=== PATIENT | male | born 1980 | race Caucasian/White ===

== ENCOUNTER 2019-11-09 18:10 | Inpatient (IN) | payer OTHER ==
[2019-11-09 19:06] VITALS: BMI 27.6
--- NOTE | 2019-11-09 21:08 | HP ---
"COWS - Scale Resting Pulse: 0= [place] 80 or Below Sweatin=Flushed/Facial Moisture Restless Observation: 0= Sits Still Pupil Size: 0= Normal to Room Light Bone or Joint Aches: 1= Mild Discomfort Runny Nose/ Eye Tearin= None GI Upset > 30mins: 0= None Tremor Observation: 0= None Yawning Observation: 2= >3x During Session Anxiety or Irritability: 2=Irritable/Anxious Goose Flesh Skin: 3=Piloerection COWS Score: 10 CIWA Score - Admission Criteria [facility]ASAS Guidelines: Admission for Medically Managed Detox: Requires at least one of the followin. CIWA greater than 12 2. Seizures within the past 24 hours 3. Delirium tremens within the past 24 hours 4. Hallucinations within the past 24 hours 5. Acute intervention needed for co occurring medical disorder 6. Acute intervention needed for co occurring psychiatric disorder 7. Severe withdrawal that cannot be handled at a lower level of care (continued vomiting, continued diarrhea, abnormal vital signs) requiring intravenous medication and/or fluids 8. Admission [facility] Chief Complaint: here for heroin detox Allergies/Adverse Reactions: Allergies Allergy/AdvReac Type Severity Reaction Status Date / Time No Known Allergies Allergy Verified 11/09/19 18:45 History of Present Illness: seeking heroin detox. referred by david valdez after seeking residential admission. client reports daily use of heroin, apporx 4 bags daily. ivdu. last use 1 day ago. presents with c/o withdrawal sx's. he reports this is his first attempt at detox. most recent clean time 10 months relapsing 2 months ago. he also abuses cocaine, cannabis. he is rx klonopin for anxiety. d/w client rx will not be continued but will detox with valium and may resume after dc. client agrees to plan and will be referred to psych., denies hx/o drug overdose / seizures/ blackouts. homeless, unemployed, denies legals Data Detail Level: Printer-Friendly View Extended View Confidential Drug Utilization Report Search Terms: sonya waldrop, 1980Search Date: 11/09/2019 09:04:08 PM The Drug Utilization Report below displays all of the controlled substance prescriptions, if any, that your patient has filled in the last twelve months. The information displayed on this report is compiled from pharmacy submissions to the Department, and accurately reflects the information as submitted by the pharmacies. This report was requested by: Amna Goodwin | Reference #: [id number] You have not added a NICK number. Keeping your NICK number(s) up to date on the My NICK Numbers page will enable the separation of your prescriptions from others ' in the search results. Others' Prescriptions Patient Name: Sonya Waldrop Date: 1980 Address: [address] [place] [address] [place] [address] Sex: Male Rx Written Rx Dispensed Drug Quantity Days Supply Prescriber Name 10/22/2019 10/22/2019 clonazepam 1 mg tablet 30 30 Ines Gotti MD 07/23/2019 07/25/2019 dextroamp-amphetamin 30 mg tab 30 30 Herrera Bocanegra MD 07/23/2019 07/25/2019 clonazepam 1 mg tablet 120 30 Herrera Bocanegra MD Exam Limitations: No Limitations - Ebola screening Have you traveled outside of the country in the last 21 days: No (N) Have you had contact with anyone from an Ebola affected area: No Do you have a fever: No - Review of Systems Constitutional: Chills, Malaise, Night Sweats EENT: reports: Blurred Vision (glasses), Nose Congestion, Dental Problems ( dental pain) Respiratory: reports: No Symptoms reported Cardiac: reports: No Symptoms Reported GI: reports: Diarrhea, Abdominal cramping : reports: No Symptoms Reported Musculoskeletal: reports: No Symptoms Reported Integumentary: reports: Flushing, Sweating Neuro: reports: Headache (r/t tmj) Endocrine: reports: No Symptoms Reported Hematology: reports: No Symptoms Reported Psychiatric: reports: Orientated x3, Agitated (irritable), Anxious, Depressed ( denies si) Other Systems: Reviewed and Negative Patient History - Patient Medical History Hx Anemia: No Hx Asthma: Yes Hx Chronic Obstructive Pulmonary Disease (COPD): No Hx Cancer: No Hx Cardiac Disorders: No Hx Congestive Heart Failure: No Hx Hypertension: No Hx Hypercholesterolemia: No Hx Pacemaker: No HX Cerebrovascular Accident: No Hx Seizures: No Hx Dementia: No Hx Diabetes: No Hx Gastrointestinal Disorders: No Hx Liver Disease: No Hx Genitourinary Disorders: No Hx Sexually Transmitted Disorders: No Hx Renal Disease (ESRD): No Hx Thyroid Disease: No Hx Human Immunodeficiency Virus (HIV): No Hx Hepatitis C: No Hx Depression: Yes Hx Suicide Attempt: No Hx Bipolar Disorder: No Hx Schizophrenia: No Other Medical History: anxiety - Patient Surgical History Past Surgical History: No - PPD History Previous Implant?: Yes Documented Results: Negative w/o proof Implanted On Prior [facility] Admission?: No PPD to be Administered?: Yes - Smoking Cessation Smoking history: Current every day smoker Have you smoked in the past 12 months: Yes Aproximately how many cigarettes per day: 20 Cigars Per Day: 0 Hx Chewing Tobacco Use: No Initiated information on smoking cessation: Yes 'Breaking Loose' booklet given: 11/09/19 - Substance & Tx. History Hx Alcohol Use: Yes Hx Substance Use: Yes Substance Use Type: Cocaine, Heroin, Marijuana Hx Substance Use Treatment: No - Substances abused Heroin Substance route: Injection Frequency: Daily Amount used: 4 BAGS Age of first use: 20 Date of last use: 11/08/19 Cocaine Substance route: Inhalation Frequency: 1-2 times per week Amount used: $20 Age of first use: 18 Date of last use: 11/08/19 Marijuana/Hashish Substance route: Smoking Frequency: Daily Amount used: $40/WEEK Age of first use: 15 Date of last use: 11/02/19 Admission Physical Exam S - Vital Signs Vital Signs: Vital Signs - 24 hr 11/09/19 11/09/19 18:47 19:41 Temperature 97 F L 97 F L Pulse Rate 69 69 Respiratory 18 18 Rate Blood Pressure 106/65 106/65 - Physical General Appearance: Yes: Moderate Distress, Sweating, Anxious HEENTM: Yes: EOMI, Normocephalic, Normal Voice, SHAY, Pharynx Normal, Nasal Congestion Respiratory: Yes: Chest Non-Tender, Lungs Clear, Normal Breath Sounds, No Respiratory Distress, No Accessory Muscle Use Neck: Yes: No masses,lesions,Nodules, Supple, Trachea in good position Breast: Yes: Breasts Symetrical Cardiology: Yes: Regular Rhythm, Regular Rate, S1, S2 Abdominal: Yes: Normal Bowel Sounds, Non Tender, Soft Genitourinary: Yes: Within Normal Limits Back: Yes: Normal Inspection Musculoskeletal: Yes: full range of Motion, Gait Steady Extremities: Yes: Normal Capillary Refill, Normal Range of Motion, Non-Tender Neurological: Yes: Fully Oriented, Alert, Motor Strength 5/5, Depressed Affect ( denies si) Integumentary: Yes: Cold, Clammy Lymphatic: Yes: Within Normal Limits - Diagnostic (1) Opioid dependence with withdrawal Current Visit: Yes Status: Acute (2) Cannabis dependence, uncomplicated Current Visit: Yes Status: Acute (3) Cocaine dependence, uncomplicated Current Visit: Yes Status: Acute (4) Nicotine dependence Current Visit: Yes Status: Acute Qualifiers: Nicotine product type: cigarettes Substance use status: uncomplicated Qualified Code(s): F17.210 - Nicotine dependence, cigarettes, uncomplicated (5) Homeless Current Visit: Yes Status: Suspected Comment: reported (6) IVDU (intravenous drug user) Current Visit: Yes Status: Acute (7) Depressed affect Current Visit: Yes Status: Acute (8) Psychiatric disorder Current Visit: Yes Status: Chronic Comment: bipolar, anxiety (9) Asthma Current Visit: Yes Status: Chronic Qualifiers: Asthma severity: mild Asthma persistence: intermittent Asthma complication type: uncomplicated Qualified Code(s): J45.20 - Mild intermittent asthma, uncomplicated Cleared for Admission S - Detox or Rehab [facility] Level of Care: Medically Managed Detox Regimen/Protocol: Methadone/Valium Claeared for Rehab Admission: No Breathalyzer - Breathalyzer Breathalyzer: 0 Urine Drug Screen - Test Device Lot number: [id number] Expiration date: 06/16/21 - Control Is test valid?: Yes - Results Drug screen NEGATIVE: No Urine drug screen results: THC-Marijuana, SYLVIA-Cocaine, MOP-Opiates Inpatient Rehab Admission - Rehab Decision to Admit Inpatient rehab admission?: No"
[2019-11-09] MEDS ORDERED: ONDANSETRON *ODT* 4 MG TABLET SL PRN (21:19)
[2019-11-09] MEDS ORDERED: METHADONE HCL 10 MG TABLET (FOR DETOX USE ONLY) PO ONE (21:19)
[2019-11-09] MEDS ORDERED: MAGNESIUM CITRATE 300 ML BOTTLE PO PRN (21:19)
[2019-11-09] MEDS ORDERED: IBUPROFEN 400 MG TABLET (FP) PO PRN (21:19)
[2019-11-09] MEDS ORDERED: DICYCLOMINE HCL 10 MG CAPSULE PO PRN (21:19)
[2019-11-09] MEDS ORDERED: BISMUTH SUBSALICYLATE 524 MG/30 ML UD PO PRN (21:19)
[2019-11-09] MEDS ORDERED: cloNIDine HCL 0.1 MG TABLET PO PRN (21:19)
[2019-11-09] MEDS ORDERED: guaiFENesin 200 MG/10 ML 10 ML UNIT-DOSE CUPS PO PRN (21:19)
[2019-11-09] MEDS ORDERED: MAG HYDROX/AL HYDROX/SIMETH 30 ML UNIT-DOSE CUP PO PRN (21:19)
[2019-11-09] MEDS ORDERED: MAGNESIUM HYDROX 2400MG/30ML ORAL SUSPENSION 30 ML CUP PO PRN (21:19)
[2019-11-09] MEDS ORDERED: ACETAMINOPHEN 325 MG TABLET (FP) PO PRN (21:19)
[2019-11-09] MEDS ORDERED: P-EPHED 60MG/TRIPROLIDI 2.5MG TABLET PO PRN (21:19)
[2019-11-09] MEDS ORDERED: MENTHOL/PHENOL 1 EACH UD MM PRN (21:19)
[2019-11-09] MEDS ORDERED: NALOXONE HCL 0.4 MG/ML VIAL IM PRN (21:19)
[2019-11-09] MEDS ORDERED: ALBUTEROL SO4 8 GM HFA INHALER IH PRN (21:30)
[2019-11-09] MEDS: METHOCARBAMOL 500 MG TABLET PO PRN (22:45)
[2019-11-09] MEDS: MELATONIN 5 MG TABLETS PO PRN (22:45)
[2019-11-09] MEDS: THIAMINE HCL 100 MG TABLET (FP) PO SCH (22:45)
[2019-11-09] MEDS: diazePAM 5 MG TABLET PO SCH (22:45)
[2019-11-10] MEDS: NICOTINE POLACRILEX 2 MG GUM BUC PRN ×2 (01:14→22:45)
[2019-11-10] MEDS: hydrOXYzine PAMOATE 25 MG CAPSULE (FP) PO PRN (03:05)
[2019-11-10] MEDS: ACETAMINOPHEN 325 MG TABLET (FP) PO PRN ×3 (03:05→23:16)
[2019-11-10] MEDS: diazePAM 5 MG TABLET PO SCH ×3 (05:48→22:43)
[2019-11-10] MEDS ORDERED: METHADONE HCL 10 MG TABLET (FOR DETOX USE ONLY) ONE (08:18)
[2019-11-10] MEDS ORDERED: METHADONE HCL 5 MG TABLET (FOR DETOX USE ONLY) ONE (08:18)
--- NOTE | 2019-11-10 09:45 | PN ---
BHS COWS - Scale Resting Pulse: 1= [place] 81-100 Sweatin= Chills/Flushing Restless Observation: 0= Sits Still Pupil Size: 1= Pupils >than Normal Bone or Joint Aches: 2= Severe Diffuse Aches Runny Nose/ Eye Tearin= None GI Upset > 30mins: 0= None Tremor Observation of Outstretched Hands: 0= None Yawning Observation: 0= None Anxiety or Irritability: 1=Feels Anxious/Irritable Goose Flesh Skin: 3=Piloerection COWS Score: 9 BHS Progress Note (SOAP) Subjective: 38 years old male admitted on 11/09/19 for opiate withdrawal sx management treating with valium and methadone detox regimens ate breakfast feeling tired resting on bed prefers to stay in bed today Objective: 11/10/19 09:48 Vital Signs Temperature 97.5 F L 11/10/19 09:20 Pulse Rate 86 11/10/19 09:20 Respiratory Rate 18 11/10/19 09:20 Blood Pressure 94/63 11/10/19 09:20 O2 Sat by Pulse Oximetry (%) 11/10/19 09:48 lab pending Assessment: 11/10/19 09:48 opiate withdrawal Plan: valium and methadone regimens
[2019-11-10] MEDS ORDERED: METHADONE (DETOX) 20 MG, METHADONE (DETOX) 5 MG PO ONE (10:00)
[2019-11-10] MEDS: NICOTINE 21 MG/24 HOURS TOPICAL PATCH TD SCH (10:29)
[2019-11-10] MEDS: diazePAM 5 MG TABLET PO PRN (10:29)
[2019-11-10] MEDS: PRENATAL VITAMINS W/ FOLIC ACID TABLET (FP) PO SCH (10:29)
[2019-11-10 11:04] LABS: ALBUMIN 3.6 g/dl (3.4-5.0); BILIRUBIN,TOTAL 0.3 mg/dL (0.2-1); BLOOD UREA NITROGEN 11.8 mg/dL (7-18); CALCIUM 8.9 mg/dL (8.5-10.1); CREATININE 0.9 mg/dL (0.55-1.3); HEMATOCRIT 38.3 % (35.4-49); HEMOGLOBIN 12.8 GM/dL (11.7-16.9); MCH 31.1 pg (25.7-33.7); MCHC 33.3 g/dl (32.0-35.9); MEAN CELL VOLUME 93.1 fl (80-96); MEAN PLT VOLUME 10.3 fl (7.5-11.1); PLATELET COUNT 193 K/MM3 (134-434); POTASSIUM 3.7 mmol/L (3.5-5.1); RBC 4.12 M/mm3 (4.00-5.60); RDW 12.7 % (11.9-15.9); TOT PROT 5.8 g/dl (6.4-8.2); WHITE BLOOD COUNT 6.8 K/mm3 (4.0-10.0)
--- NOTE | 2019-11-10 13:35 | CONSULT ---
[facility] Psychiatric Consult - Data Date of interview: 11/10/19 Admission source: [employer] Identifying data: Mr Waldrop is a 38 years old single male, unemployed receiving public assistance, homeless seeking detox treatment for opioid, cocaine and cannabis Substance Abuse History: Reports history of heroin, cocaine and marijuana use. Refer to addiction counselor's summary for further information Medical History: Significant for bronchial asthme and appendectomy at age 13. Smokes cigarettes 1 ppd Psychiatric History: Reports that his first mental health contact was at age 7 in the context of his parents . Claims that he saw a psychologist for many years. At age 27, he was diagnosed with anxiety disorder and prescribed Xanax. On June 2018, he reports that he was diagnosed with paranoid personality disorder and prescribed Haldol. Reports that he currently sees a psychiatrist at [facility] and he is prescribed Haldol 2 mg/hs, Paxil 40 mg/day and Klonopin 1 mg/day. Reports two previous psychiatric hospitalizations at [facility] in [place] and most recently in 2010 at [facility] for auditory hallucinations and paranoid ideations. Denies previous suicidal attempt. At present, denies experiencing psychotic, manic or depressive symptoms, S/H ideations. However, reports feeling irritable and sleeping poorly Physical/Sexual Abuse/Trauma History: Denies history of abuse as a child or DV relationship as an adult Mental Status Exam - Mental Status Exam Alert and Oriented to: Time, Place, Person Cognitive Function: Fair Patient Appearance: Well Groomed Mood: Irritable Speech Pattern: Clear Voice Loudness: Normal Thought Process: Intact, Goal Oriented Thought Disorder: Not Present Hallucinations: Denies Suicidal Ideation: Denies Homicidal Ideation: Denies Insight/Judgement: Poor Sleep: Poorly Appetite: Good Muscle strength/Tone: Normal Gait/Station: Normal Psychiatric Findings - Problem List ([place] 1, 2,3) (1) Psychotic disorder Current Visit: Yes Status: Chronic (2) Schizophrenia Current Visit: Yes Status: Ruled-out (3) Substance induced mood disorder Current Visit: Yes Status: Acute (4) Substance-induced sleep disorder Current Visit: Yes Status: Acute (5) Opioid dependence with withdrawal Current Visit: Yes Status: Acute (6) Cocaine dependence, uncomplicated Current Visit: Yes Status: Acute (7) Cannabis dependence, uncomplicated Current Visit: Yes Status: Acute (8) Nicotine dependence Current Visit: Yes Status: Chronic Qualifiers: Nicotine product type: cigarettes Substance use status: uncomplicated Qualified Code(s): F17.210 - Nicotine dependence, cigarettes, uncomplicated (9) Asthma Current Visit: Yes Status: Chronic Qualifiers: Asthma severity: mild Asthma persistence: intermittent Asthma complication type: uncomplicated Qualified Code(s): J45.20 - Mild intermittent asthma, uncomplicated - Initial Treatment Plan Initial Treatment Plan: 1) Continue Paxil 40 mg po daily and Haldol 2 mg po HS. 2) Continue inpatient detoxification
[2019-11-10] MEDS: PARoxetine HCL 20 MG TABLET PO SCH (14:13)
[2019-11-10] MEDS: THIAMINE HCL 100 MG TABLET (FP) PO SCH (22:43)
[2019-11-10] MEDS: HALOPERIDOL 2 MG TABLET PO SCH (22:43)
[2019-11-11] MEDS: hydrOXYzine PAMOATE 25 MG CAPSULE (FP) PO PRN ×3 (01:22→18:30)
[2019-11-11] MEDS: diazePAM 5 MG TABLET PO SCH ×2 (05:14→17:29)
[2019-11-11] MEDS ORDERED: METHADONE HCL 10 MG TABLET (FOR DETOX USE ONLY) PO ONE (10:00)
--- NOTE | 2019-11-11 10:31 | EKG ---
Test Reason : Blood Pressure : / mmHG Vent. Rate : 061 BPM Atrial Rate : 061 BPM P-R Int : 188 ms QRS Dur : 104 ms QT Int : 402 ms P-R-T Axes : 039 074 050 degrees QTc Int : 404 ms POOR DATA QUALITY, INTERPRETATION MAY BE ADVERSELY AFFECTED NORMAL SINUS RHYTHM NORMAL ECG NO PREVIOUS ECGS AVAILABLE Confirmed by WENCESLAO JUDD, MAGALI ([id number]) on 11/11/2019 10:31:01 AM Referred By: Butch Smith Confirmed By:MAGALI BILLY MD
--- NOTE | 2019-11-11 10:56 | PN ---
BHS COWS - Scale Resting Pulse: 1= [place] 81-100 Sweatin= Chills/Flushing Restless Observation: 0= Sits Still Pupil Size: 1= Pupils >than Normal Bone or Joint Aches: 1= Mild Discomfort Runny Nose/ Eye Tearin= None GI Upset > 30mins: 1= Stomach Cramp Tremor Observation of Outstretched Hands: 0= None Yawning Observation: 2= >3x During Session Anxiety or Irritability: 1=Feels Anxious/Irritable Goose Flesh Skin: 0=Smooth Skin COWS Score: 8 S Progress Note (SOAP) Subjective: 38 years old male admitted on 11/09/19 for opiate withdrawal sx management treating with valium and methadone detox regimens feeling ok today encourage to attend groups and meetings discuss medication assisted treatment program and roll picker narcan from pharmacy Objective: 11/11/19 10:55 Vital Signs Temperature 98.2 F 11/11/19 09:27 Pulse Rate 86 11/11/19 09:27 Respiratory Rate 18 11/11/19 09:27 Blood Pressure 116/79 11/11/19 09:27 O2 Sat by Pulse Oximetry (%) Laboratory Last Values WBC 6.8 K/mm3 (4.0-10.0) 11/10/19 07:50 RBC 4.12 M/mm3 (4.00-5.60) 11/10/19 07:50 Hgb 12.8 GM/dL (11.7-16.9) 11/10/19 07:50 Hct 38.3 % (35.4-49) 11/10/19 07:50 MCV 93.1 fl (80-96) 11/10/19 07:50 MCH 31.1 pg (25.7-33.7) 11/10/19 07:50 MCHC 33.3 g/dl (32.0-35.9) 11/10/19 07:50 RDW 12.7 % (11.9-15.9) 11/10/19 07:50 Plt Count 193 K/MM3 (134-434) 11/10/19 07:50 MPV 10.3 fl (7.5-11.1) 11/10/19 07:50 Sodium 142 mmol/L (136-145) 11/10/19 07:50 Potassium 3.7 mmol/L (3.5-5.1) 11/10/19 07:50 Chloride 108 mmol/L (98-107) H 11/10/19 07:50 Carbon Dioxide 30 mmol/L (21-32) 11/10/19 07:50 Anion Gap 5 MMOL/L (8-16) L 11/10/19 07:50 BUN 11.8 mg/dL (7-18) 11/10/19 07:50 Creatinine 0.9 mg/dL (0.55-1.3) 11/10/19 07:50 Est GFR (CKD-EPI)AfAm 126.90 11/10/19 07:50 Est GFR (CKD-EPI)NonAf 109.49 11/10/19 07:50 Random Glucose 122 mg/dL (74-106) H 11/10/19 07:50 Calcium 8.9 mg/dL (8.5-10.1) 11/10/19 07:50 Total Bilirubin 0.3 mg/dL (0.2-1) 11/10/19 07:50 AST 9 U/L (15-37) L 11/10/19 07:50 ALT 21 U/L (13-61) 11/10/19 07:50 Alkaline Phosphatase 50 U/L (45-117) 11/10/19 07:50 Total Protein 5.8 g/dl (6.4-8.2) L 11/10/19 07:50 Albumin 3.6 g/dl (3.4-5.0) 11/10/19 07:50 RPR Titer Nonreactive (NONREACTIVE) 11/10/19 07:50 lab noted Assessment: 11/11/19 10:56 opiate withdrawal Plan: valium and methadone regimens
[2019-11-11] MEDS: PRENATAL VITAMINS W/ FOLIC ACID TABLET (FP) PO SCH (11:02)
[2019-11-11] MEDS: PARoxetine HCL 20 MG TABLET PO SCH (11:02)
[2019-11-11] MEDS: NICOTINE 21 MG/24 HOURS TOPICAL PATCH TD SCH (11:02)
[2019-11-11] MEDS: NICOTINE POLACRILEX 2 MG GUM BUC PRN ×2 (11:59→18:56)
--- NOTE | 2019-11-11 19:42 | PN ---
BHS Progress Note Note: Patient w/ a PPD induration of 20 mm. Denies + PPD in past. Denies hx cough or night sweats. Plan: Chest x-ray in a.m.
[2019-11-11] MEDS: THIAMINE HCL 100 MG TABLET (FP) PO SCH (22:00)
[2019-11-11] MEDS: HALOPERIDOL 2 MG TABLET PO SCH (22:01)
[2019-11-11] MEDS: diazePAM 5 MG TABLET PO PRN (22:02)
[2019-11-11] MEDS: MELATONIN 5 MG TABLETS PO PRN (22:03)
[2019-11-12] MEDS: hydrOXYzine PAMOATE 25 MG CAPSULE (FP) PO PRN ×4 (00:36→20:09)
[2019-11-12] MEDS ORDERED: diazePAM 5 MG TABLET PO ONE (06:00)
[2019-11-12] MEDS ORDERED: METHADONE HCL 5 MG TABLET (FOR DETOX USE ONLY) ONE (08:14)
[2019-11-12] MEDS ORDERED: METHADONE HCL 10 MG TABLET (FOR DETOX USE ONLY) ONE (08:14)
[2019-11-12] MEDS ORDERED: METHADONE (DETOX) 10 MG, METHADONE (DETOX) 5 MG PO ONE (10:00)
[2019-11-12] MEDS: PARoxetine HCL 20 MG TABLET PO SCH (10:23)
[2019-11-12] MEDS: PRENATAL VITAMINS W/ FOLIC ACID TABLET (FP) PO SCH (10:23)
[2019-11-12] MEDS: NICOTINE 21 MG/24 HOURS TOPICAL PATCH TD SCH (10:23)
[2019-11-12] MEDS: diazePAM 5 MG TABLET PO PRN (10:23)
[2019-11-12] MEDS: METHOCARBAMOL 500 MG TABLET PO PRN ×2 (10:24→22:20)
--- NOTE | 2019-11-12 12:02 | PN ---
BHS COWS - Scale Resting Pulse: 1= [place] 81-100 Sweatin= Chills/Flushing Restless Observation: 1= Difficult to Sit Still Pupil Size: 0= Normal to Room Light Bone or Joint Aches: 1= Mild Discomfort Runny Nose/ Eye Tearin= None GI Upset > 30mins: 0= None Tremor Observation of Outstretched Hands: 0= None Yawning Observation: 1= 1-2x During Session Anxiety or Irritability: 2=Irritable/Anxious Goose Flesh Skin: 0=Smooth Skin COWS Score: 7 S Progress Note (SOAP) Subjective: c/o sweats, anxiety, and muscle aches. Objective: 11/12/19 12:03 Vital Signs 11/12/19 11/12/19 06:17 09:10 Temperature 98 F 97.4 F L Pulse Rate 63 84 Respiratory 18 16 Rate Blood Pressure 115/67 110/71 Laboratory Last Values WBC 6.8 K/mm3 (4.0-10.0) 11/10/19 07:50 RBC 4.12 M/mm3 (4.00-5.60) 11/10/19 07:50 Hgb 12.8 GM/dL (11.7-16.9) 11/10/19 07:50 Hct 38.3 % (35.4-49) 11/10/19 07:50 MCV 93.1 fl (80-96) 11/10/19 07:50 MCH 31.1 pg (25.7-33.7) 11/10/19 07:50 MCHC 33.3 g/dl (32.0-35.9) 11/10/19 07:50 RDW 12.7 % (11.9-15.9) 11/10/19 07:50 Plt Count 193 K/MM3 (134-434) 11/10/19 07:50 MPV 10.3 fl (7.5-11.1) 11/10/19 07:50 Sodium 142 mmol/L (136-145) 11/10/19 07:50 Potassium 3.7 mmol/L (3.5-5.1) 11/10/19 07:50 Chloride 108 mmol/L (98-107) H 11/10/19 07:50 Carbon Dioxide 30 mmol/L (21-32) 11/10/19 07:50 Anion Gap 5 MMOL/L (8-16) L 11/10/19 07:50 BUN 11.8 mg/dL (7-18) 11/10/19 07:50 Creatinine 0.9 mg/dL (0.55-1.3) 11/10/19 07:50 Est GFR (CKD-EPI)AfAm 126.90 11/10/19 07:50 Est GFR (CKD-EPI)NonAf 109.49 11/10/19 07:50 Random Glucose 122 mg/dL (74-106) H 11/10/19 07:50 Calcium 8.9 mg/dL (8.5-10.1) 11/10/19 07:50 Total Bilirubin 0.3 mg/dL (0.2-1) 11/10/19 07:50 AST 9 U/L (15-37) L 11/10/19 07:50 ALT 21 U/L (13-61) 11/10/19 07:50 Alkaline Phosphatase 50 U/L (45-117) 11/10/19 07:50 Total Protein 5.8 g/dl (6.4-8.2) L 11/10/19 07:50 Albumin 3.6 g/dl (3.4-5.0) 11/10/19 07:50 RPR Titer Nonreactive (NONREACTIVE) 11/10/19 07:50 Labs noted. Assessment: 11/12/19 12:03 AOX3, in no acute respiratory distress. Full ROM, ambulating in the unit. Withdrawal symptoms. Plan: continue detox.
[2019-11-12] MEDS: THIAMINE HCL 100 MG TABLET (FP) PO SCH (22:18)
[2019-11-12] MEDS: HALOPERIDOL 2 MG TABLET PO SCH (22:19)
[2019-11-13] MEDS: hydrOXYzine PAMOATE 25 MG CAPSULE (FP) PO PRN ×3 (05:21→21:32)
[2019-11-13] MEDS ORDERED: METHADONE HCL 10 MG TABLET (FOR DETOX USE ONLY) PO ONE (10:00)
[2019-11-13] MEDS: NICOTINE 21 MG/24 HOURS TOPICAL PATCH TD SCH (10:22)
[2019-11-13] MEDS: PARoxetine HCL 20 MG TABLET PO SCH (10:22)
[2019-11-13] MEDS: PRENATAL VITAMINS W/ FOLIC ACID TABLET (FP) PO SCH (10:23)
[2019-11-13] MEDS: ACETAMINOPHEN 325 MG TABLET (FP) PO PRN (10:25)
--- NOTE | 2019-11-13 11:07 | PN ---
BHS COWS - Scale Resting Pulse: 0= [place] 80 or Below Sweatin= No chills or Flushing Restless Observation: 0= Sits Still Pupil Size: 0= Normal to Room Light Bone or Joint Aches: 2= Severe Diffuse Aches Runny Nose/ Eye Tearin= None GI Upset > 30mins: 0= None Tremor Observation of Outstretched Hands: 0= None Yawning Observation: 0= None Anxiety or Irritability: 2=Irritable/Anxious Goose Flesh Skin: 0=Smooth Skin COWS Score: 4 BHS Progress Note (SOAP) Subjective: c/o mild withdrawal symptoms. Objective: 11/13/19 11:06 Vital Signs 11/13/19 11/13/19 11/13/19 03:30 06:44 09:19 Temperature 97.1 F L 98 F Pulse Rate 64 90 Respiratory 18 18 20 Rate Blood Pressure 103/66 118/72 Laboratory Last Values WBC 6.8 K/mm3 (4.0-10.0) 11/10/19 07:50 RBC 4.12 M/mm3 (4.00-5.60) 11/10/19 07:50 Hgb 12.8 GM/dL (11.7-16.9) 11/10/19 07:50 Hct 38.3 % (35.4-49) 11/10/19 07:50 MCV 93.1 fl (80-96) 11/10/19 07:50 MCH 31.1 pg (25.7-33.7) 11/10/19 07:50 MCHC 33.3 g/dl (32.0-35.9) 11/10/19 07:50 RDW 12.7 % (11.9-15.9) 11/10/19 07:50 Plt Count 193 K/MM3 (134-434) 11/10/19 07:50 MPV 10.3 fl (7.5-11.1) 11/10/19 07:50 Sodium 142 mmol/L (136-145) 11/10/19 07:50 Potassium 3.7 mmol/L (3.5-5.1) 11/10/19 07:50 Chloride 108 mmol/L (98-107) H 11/10/19 07:50 Carbon Dioxide 30 mmol/L (21-32) 11/10/19 07:50 Anion Gap 5 MMOL/L (8-16) L 11/10/19 07:50 BUN 11.8 mg/dL (7-18) 11/10/19 07:50 Creatinine 0.9 mg/dL (0.55-1.3) 11/10/19 07:50 Est GFR (CKD-EPI)AfAm 126.90 11/10/19 07:50 Est GFR (CKD-EPI)NonAf 109.49 11/10/19 07:50 Random Glucose 122 mg/dL (74-106) H 11/10/19 07:50 Calcium 8.9 mg/dL (8.5-10.1) 11/10/19 07:50 Total Bilirubin 0.3 mg/dL (0.2-1) 11/10/19 07:50 AST 9 U/L (15-37) L 11/10/19 07:50 ALT 21 U/L (13-61) 11/10/19 07:50 Alkaline Phosphatase 50 U/L (45-117) 11/10/19 07:50 Total Protein 5.8 g/dl (6.4-8.2) L 11/10/19 07:50 Albumin 3.6 g/dl (3.4-5.0) 11/10/19 07:50 RPR Titer Nonreactive (NONREACTIVE) 11/10/19 07:50 Labs noted. Assessment: 11/13/19 11:07 AOx3, in no acute respiratory distress. Full rom, ambulating in the unit. Mild Withdrawal symptoms. For d/c tomorrow. Plan: continue detox. D/C in AM.
[2019-11-13] MEDS: NICOTINE POLACRILEX 2 MG GUM BUC PRN ×2 (15:10→20:31)
[2019-11-13] MEDS: THIAMINE HCL 100 MG TABLET (FP) PO SCH (21:31)
[2019-11-13] MEDS: MELATONIN 5 MG TABLETS PO PRN (21:32)
[2019-11-13] MEDS: METHOCARBAMOL 500 MG TABLET PO PRN (21:33)
[2019-11-13] MEDS: HALOPERIDOL 2 MG TABLET PO SCH (21:33)
[2019-11-14] MEDS: hydrOXYzine PAMOATE 25 MG CAPSULE (FP) PO PRN (05:49)
[2019-11-14] MEDS ORDERED: METHADONE HCL 5 MG TABLET (FOR DETOX USE ONLY) PO ONE (06:00)
[2019-11-14] MEDS: NICOTINE 21 MG/24 HOURS TOPICAL PATCH TD SCH (09:20)
[2019-11-14] MEDS: PRENATAL VITAMINS W/ FOLIC ACID TABLET (FP) PO SCH (09:20)
[2019-11-14] MEDS: PARoxetine HCL 20 MG TABLET PO SCH (09:20)
--- NOTE | 2019-11-14 12:10 | DS ---
[facility] Detox Discharge Summary Admission Date: 11/09/19 Discharge Date: 11/14/19 - History Present History: Opioid Dependence Additional Comments: 38 years old male admitted on 11/09/19 for opiate withdrawal sx management treated with methadone detox regimen patient tolerated well alert oriented x 3 cardiac s1s2 regular rate rhythm respiratory clear lungs bilaterally on auscultation extremities full range of motion - Physical Exam Results Vital Signs: Vital Signs Temperature 99.3 F 11/14/19 09:07 Pulse Rate 73 11/14/19 09:07 Respiratory Rate 18 11/14/19 09:07 Blood Pressure 114/84 11/14/19 09:07 O2 Sat by Pulse Oximetry (%) Pertinent Admission Physical Exam Findings: opiate withdrawal Laboratory Last Values WBC 6.8 K/mm3 (4.0-10.0) 11/10/19 07:50 RBC 4.12 M/mm3 (4.00-5.60) 11/10/19 07:50 Hgb 12.8 GM/dL (11.7-16.9) 11/10/19 07:50 Hct 38.3 % (35.4-49) 11/10/19 07:50 MCV 93.1 fl (80-96) 11/10/19 07:50 MCH 31.1 pg (25.7-33.7) 11/10/19 07:50 MCHC 33.3 g/dl (32.0-35.9) 11/10/19 07:50 RDW 12.7 % (11.9-15.9) 11/10/19 07:50 Plt Count 193 K/MM3 (134-434) 11/10/19 07:50 MPV 10.3 fl (7.5-11.1) 11/10/19 07:50 Sodium 142 mmol/L (136-145) 11/10/19 07:50 Potassium 3.7 mmol/L (3.5-5.1) 11/10/19 07:50 Chloride 108 mmol/L (98-107) H 11/10/19 07:50 Carbon Dioxide 30 mmol/L (21-32) 11/10/19 07:50 Anion Gap 5 MMOL/L (8-16) L 11/10/19 07:50 BUN 11.8 mg/dL (7-18) 11/10/19 07:50 Creatinine 0.9 mg/dL (0.55-1.3) 11/10/19 07:50 Est GFR (CKD-EPI)AfAm 126.90 11/10/19 07:50 Est GFR (CKD-EPI)NonAf 109.49 11/10/19 07:50 Random Glucose 122 mg/dL (74-106) H 11/10/19 07:50 Calcium 8.9 mg/dL (8.5-10.1) 11/10/19 07:50 Total Bilirubin 0.3 mg/dL (0.2-1) 11/10/19 07:50 AST 9 U/L (15-37) L 11/10/19 07:50 ALT 21 U/L (13-61) 11/10/19 07:50 Alkaline Phosphatase 50 U/L (45-117) 11/10/19 07:50 Total Protein 5.8 g/dl (6.4-8.2) L 11/10/19 07:50 Albumin 3.6 g/dl (3.4-5.0) 11/10/19 07:50 RPR Titer Nonreactive (NONREACTIVE) 11/10/19 07:50 lab noted - Treatment Hospital Course: Detox Protocol Followed, Detoxed Safely, Responded well, Discharged Condition Good, Rehab Referral Accepted Patient has Accept[facility] - Medication Discharge Medications: Ambulatory Orders Clonazepam [Klonopin] 1 mg PO DAILY 11/09/19 Haloperidol [Haldol -] 2 mg PO DAILY 11/09/19 Paroxetine HCl [Paxil] 40 mg PO DAILY 11/09/19 Naloxone HCl [Narcan] 4 mg NS ASDIR PRN #1 spray 11/10/19 Gabapentin [Neurontin] 300 mg PO BID 11/11/19 traZODone HCL [Trazodone HCl] 100 mg PO HS 11/11/19 - Diagnosis (1) Opioid dependence with withdrawal Current Visit: Yes Status: Acute (2) Substance induced mood disorder Current Visit: Yes Status: Suspected (3) Asthma Current Visit: Yes Status: Chronic Qualifiers: Asthma severity: mild Asthma persistence: intermittent Asthma complication type: uncomplicated Qualified Code(s): J45.20 - Mild intermittent asthma, uncomplicated (4) Nicotine dependence Current Visit: Yes Status: Acute Qualifiers: Nicotine product type: cigarettes Substance use status: in withdrawal Qualified Code(s): F17.213 - Nicotine dependence, cigarettes, with withdrawal - AMA Did Patient Leave Against Medical Advice: No COWS (PN) - Opiate Withdrawal Resting Pulse: 0= [place] 80 or Below Sweatin= Chills/Flushing Restless Observation: 0= Sits Still Pupil Size: 0= Normal to Room Light Bone or Joint Aches: 0= None Runny Nose/ Eye Tearin= None GI Upset > 30mins: 0= None Tremor Observation of Outstretched Hands: 0= None Yawning Observation: 0= None Anxiety or Irritability: 1=Feels Anxious/Irritable Goose Flesh Skin: 0=Smooth Skin COWS Score: 2
[2019-11-14 13:19] VITALS: BP 103/67; PULSE 72; TEMP 97.6
== END 2019-11-14 14:53 | disposition other institution (70) | DRG 773 ==
LOC: YASAS 18:10 → Y3N 21:11
PROVIDERS: ADMIT Allergy & Immunology; ATTEND Allergy & Immunology
PROC: HZ2ZZZZ Detoxification Services for Substance Abuse Treatment (ICD-10-PCS; principal; 2019-11-09)
DX: F11.23 Opioid dependence with withdrawal (principal); F14.20 Cocaine dependence, uncomplicated; F12.20 Cannabis dependence, uncomplicated; F17.213 Nicotine dependence, cigarettes, with withdrawal; F19.24 Other psychoactive substance dependence with psychoactive substance-induced mood disorder; F19.282 Other psychoactive substance dependence with psychoactive substance-induced sleep disorder; F99 Mental disorder, not otherwise specified; F20.9 Schizophrenia, unspecified; F32.9 Major depressive disorder, single episode, unspecified; J45.20 Mild intermittent asthma, uncomplicated; R76.11 Nonspecific reaction to tuberculin skin test without active tuberculosis; Z59.0 Homelessness
CPT/HCPCS: 36415; 71046-TC-FY; 80053; 85027; 86593; 93005; 93010; Q0162

== ENCOUNTER 2019-11-14 14:55 | Inpatient (IN) | payer OTHER ==
--- NOTE | 2019-11-14 12:16 | HP ---
[facility] Rehab Assess/Revision - Admission History Admitted to Rehab from: [facility] Date of Admission to Rehab: 11/14/19 - Findings Detox History & Physical reviewed: Yes Concur with findings: Yes Comments/Additional Findings: tranferred from detox to rehab admission as per protocol Inpatient Rehab Admission - Rehab Decision to Admit Inpatient rehab admission?: Yes - Initial Determination Are CD services needed?: Yes Free of communicable disease: Yes Not in need of hospitalization: Yes - Rehab Admission Criteria Previous failed treatment: Yes Poor recovery environment: Yes Comorbidities: Yes Lacks judgement: Yes Patient is meeting Inpatient Rehab admission criteria:: Yes
[~2019-11-14 14:55] MED LIST: ALBUTEROL SO4 HFA INHALER IH PRN; LOPERAMIDE HCL 2 MG CAPSULE PO PRN; MAG HYDROX/AL HYDROX/SIMETH 30 ML UNIT-DOSE CUP PO PRN; MAGNESIUM CITRATE 300 ML BOTTLE PO PRN; MENTHOL/PHENOL 1 EACH UD MM PRN; guaiFENesin 200 MG/10 ML 10 ML UNIT-DOSE CUPS PO PRN
[2019-11-14] MEDS: NICOTINE POLACRILEX 4 MG GUM BC PRN ×2 (16:35→22:30)
[2019-11-14] MEDS: MELATONIN 5 MG TABLETS PO PRN (21:12)
[2019-11-14] MEDS: THIAMINE HCL 100 MG TABLET (FP) PO SCH (21:12)
[2019-11-14] MEDS ORDERED: HALOPERIDOL 2 MG TABLET PO SCH (22:00)
[2019-11-15] MEDS: NICOTINE 21 MG/24 HOURS TOPICAL PATCH TD SCH (10:00)
[2019-11-15] MEDS: PARoxetine HCL 20 MG TABLET PO SCH (10:00)
[2019-11-15] MEDS: PRENATAL VITAMINS W/ FOLIC ACID TABLET (FP) PO SCH (10:00)
[2019-11-15] MEDS: NICOTINE POLACRILEX 4 MG GUM BC PRN ×2 (10:01→18:52)
--- NOTE | 2019-11-15 10:54 | CONSULT ---
[facility] Psychiatric Consult - Data Date of interview: 11/15/19 Admission source: Self-referred Identifying data: Mr Waldrop is a 38 years old single male, unemployed receiving public assistance, homeless seeking detox treatment for opioid, cocaine and cannabis Substance Abuse History: Reports history of heroin, cocaine and marijuana use. Refer to addiction counselor's summary for further information Medical History: Significant for bronchial asthma and appendectomy at age 13. Smokes cigarettes 1 ppd Psychiatric History: Patient was recently seen by financial underwriter on 11/10/19 while admitted to detox. Historical narrative remains consistent. He reports that his first mental health contact was at age 7 in the context of his parents . Claims that he saw a psychologist for many years. At age 27, he was diagnosed with anxiety disorder and prescribed Xanax. On June 2018, he reports that he was diagnosed with paranoid personality disorder and prescribed Haldol. Reports that he currently sees a psychiatrist at [facility], [place] and he is prescribed Haldol 2 mg/hs, Paxil 40 mg/day and Klonopin 1 mg/day. According to [facility] parmacy [phone] [place] [address], recent scripts for Paxil 40 mg/day, Haldol 5 mg/bid and Klonopin 1 mg/ day and script for Gabapentin 400 mg/qid back in April 2018. Reports two previous psychiatric hospitalizations at [facility] in [place] and most recently in 2010 at [facility] for auditory hallucinations and paranoid ideations. Nika seen by financial underwriter on 11/10/19, he was continued on Paxil 40 mg/day and Haldol 2 mg/hs. Denies previous suicidal attempt. At present, denies experiencing psychotic, manic or depressive symptoms, S/H ideations. However, reports feeling anxious and sleeping poorly. Requests to have Haldol ordered 1 mg/bid instead on 2 ng/hs. Also requests Gabapentin for anxiety to replace Klonopin and Trazadone for insomnia. Told financial underwriter that he took medication in the past and responded well to them. Physical/Sexual Abuse/Trauma History: Denies history of abuse as a child or DV relationship as an adult Mental Status Exam - Mental Status Exam Alert and Oriented to: Time, Place, Person Cognitive Function: Fair Patient Appearance: Well Groomed Mood: Anxious Affect: Appropriate Patient Behavior: Cooperative Speech Pattern: Clear Voice Loudness: Normal Thought Process: Intact, Goal Oriented Thought Disorder: Not Present Hallucinations: Denies Suicidal Ideation: Denies Homicidal Ideation: Denies Insight/Judgement: Fair Sleep: Poorly Appetite: Good Muscle strength/Tone: Normal Gait/Station: Normal Psychiatric Findings - Problem List ([place] 1, 2,3) (1) Psychotic disorder Current Visit: No Status: Chronic (2) Schizophrenia Current Visit: No Status: Ruled-out (3) Substance-induced anxiety disorder Current Visit: Yes Status: Acute (4) Substance-induced sleep disorder Current Visit: No Status: Acute (5) Opioid dependence Current Visit: Yes Status: Acute (6) Cannabis dependence Current Visit: Yes Status: Acute (7) Nicotine dependence Current Visit: No Status: Chronic Qualifiers: Nicotine product type: cigarettes Substance use status: in withdrawal Qualified Code(s): F17.213 - Nicotine dependence, cigarettes, with withdrawal (8) Asthma Current Visit: No Status: Chronic Qualifiers: Asthma severity: mild Asthma persistence: intermittent Asthma complication type: uncomplicated Qualified Code(s): J45.20 - Mild intermittent asthma, uncomplicated - Initial Treatment Plan Initial Treatment Plan: 1) Continue Paxil 40 mg po daily. 2) Discontinue Haldol 2 mg po HS. 3) Star Haldol 1 mg po BID, Gabapentin 300 mg po BID and Trazadone 100 mg po HS. 4) Continue inpatient rehabilitation
[2019-11-15] MEDS ORDERED: FLU VACCINE QUAD 60 MCG/0.5 ML (MDV 19-20) IM ONE (12:00)
[2019-11-15] MEDS: HALOPERIDOL 1 MG TABLET PO SCH ×2 (13:13→21:37)
[2019-11-15] MEDS: GABAPENTIN 300 MG CAPSULE PO SCH ×2 (13:13→21:37)
[2019-11-15] MEDS: ACETAMINOPHEN 325 MG TABLET (FP) PO PRN (18:51)
[2019-11-15] MEDS: traZODone HCL 100 MG TABLET (FP) PO SCH (21:37)
[2019-11-15] MEDS: THIAMINE HCL 100 MG TABLET (FP) PO SCH (21:37)
[2019-11-16] MEDS: NICOTINE 21 MG/24 HOURS TOPICAL PATCH TD SCH (10:01)
[2019-11-16] MEDS: GABAPENTIN 300 MG CAPSULE PO SCH ×2 (10:01→21:17)
[2019-11-16] MEDS: HALOPERIDOL 1 MG TABLET PO SCH ×2 (10:01→21:16)
[2019-11-16] MEDS: PRENATAL VITAMINS W/ FOLIC ACID TABLET (FP) PO SCH (10:01)
[2019-11-16] MEDS: PARoxetine HCL 20 MG TABLET PO SCH (10:01)
[2019-11-16] MEDS: NICOTINE POLACRILEX 4 MG GUM BC PRN ×2 (14:13→19:31)
[2019-11-16] MEDS: THIAMINE HCL 100 MG TABLET (FP) PO SCH (21:16)
[2019-11-16] MEDS: MELATONIN 5 MG TABLETS PO PRN (21:16)
[2019-11-16] MEDS: traZODone HCL 100 MG TABLET (FP) PO SCH (21:17)
[2019-11-17] MEDS ORDERED: NALOXONE (NARCAN) HCL 4 MG/0.1 ML SPRAY NS PRN (09:42)
--- NOTE | 2019-11-17 09:46 | PN ---
[facility] COWS - Scale Resting Pulse: 1= [place] 81-100 Sweatin= Chills/Flushing Restless Observation: 0= Sits Still Pupil Size: 0= Normal to Room Light Bone or Joint Aches: 1= Mild Discomfort Runny Nose/ Eye Tearin= Runny Nose/Eyes GI Upset > 30mins: 1= Stomach Cramp Tremor Observation of Outstretched Hands: 0= None Yawning Observation: 0= None Anxiety or Irritability: 2=Irritable/Anxious Goose Flesh Skin: 0=Smooth Skin COWS Score: 8 BHS Progress Note (SOAP) Subjective: PATIENT ADMITTED TO REHAB 11/14/19 AFTER COMPLETING DETOX FOR HEROIN DEPENDENCE. PATIENT HAS HX OF IVDA, 4 BAGS. PATIENT C/O CHILLS, BODY ACHES, ANXIETY AND OPIOD CRAVINGS. REQUESTING TO START SUBOXONE MAT. PMH INCLUDES ANXIETY/ADHD. ISTOP REVIEWED UPON ADMISSION, + PREVIOUS PRESCRIPTIONS FOR KLONIPIN/ADDERRAL. Objective: 11/17/19 09:56 Laboratory Tests 11/15/19 07:00 HIV 1&2 Antibody Screen Negative HIV P24 Antigen Negative Vital Signs Temperature 97.7 F 11/17/19 07:06 Pulse Rate 81 11/17/19 07:06 Respiratory Rate 18 11/17/19 07:06 Blood Pressure 116/85 11/17/19 07:06 O2 Sat by Pulse Oximetry (%) PE ALERT AND ORIENTED X 3 SKIN WARM AND DRY +PERRLA EOMS INTACT BL +NASAL CONGESTION GI ND,NT EXT FULL ROM, AMB AD GRACIA NO TREMORS ANXIOUS DENIES SI/HI Assessment: 11/17/19 09:58 OPIOD DEPENDENCE SUBOXONE MAT Plan: PATIENT REFERRED TO COUNSELOR FOR CONNECTION TO OUTPATIENT PROGRAM WILL START SUBOXONE 4MG SL DAILY DUE TO HX OF IVDA. USE, DOSE AND SIDE EFFECTS REVIEWED WITH PATIENT TO CONTINUE GROUP MEETINGS AND REHAB SERVICES MONITOR CLINICALLY
[2019-11-17] MEDS ORDERED: BENZOCAINE 20 % GEL TUBE MM PRN (09:48)
[2019-11-17] MEDS: PRENATAL VITAMINS W/ FOLIC ACID TABLET (FP) PO SCH (09:49)
[2019-11-17] MEDS: PARoxetine HCL 20 MG TABLET PO SCH (09:49)
[2019-11-17] MEDS: GABAPENTIN 300 MG CAPSULE PO SCH ×2 (09:49→21:46)
[2019-11-17] MEDS: NICOTINE 21 MG/24 HOURS TOPICAL PATCH TD SCH (09:49)
[2019-11-17] MEDS: HALOPERIDOL 1 MG TABLET PO SCH ×2 (09:50→21:46)
[2019-11-17] MEDS: BUPRENORPHINE/NALOXONE 4 MG/1 MG FILM PACKET SL SCH (10:34)
[2019-11-17] MEDS: NICOTINE POLACRILEX 4 MG GUM BC PRN ×2 (14:44→17:44)
[2019-11-17] MEDS: IBUPROFEN 400 MG TABLET (FP) PO PRN (19:54)
[2019-11-17] MEDS: traZODone HCL 100 MG TABLET (FP) PO SCH (21:45)
[2019-11-17] MEDS: MELATONIN 5 MG TABLETS PO PRN (21:46)
[2019-11-17] MEDS: THIAMINE HCL 100 MG TABLET (FP) PO SCH (21:48)
[2019-11-18] MEDS: BUPRENORPHINE/NALOXONE 4 MG/1 MG FILM PACKET SL SCH (10:11)
[2019-11-18] MEDS: PRENATAL VITAMINS W/ FOLIC ACID TABLET (FP) PO SCH (10:11)
[2019-11-18] MEDS: HALOPERIDOL 1 MG TABLET PO SCH ×2 (10:12→21:47)
[2019-11-18] MEDS: NICOTINE 21 MG/24 HOURS TOPICAL PATCH TD SCH (10:12)
[2019-11-18] MEDS: PARoxetine HCL 20 MG TABLET PO SCH (10:12)
[2019-11-18] MEDS: GABAPENTIN 300 MG CAPSULE PO SCH ×2 (10:12→21:47)
[2019-11-18] MEDS: NICOTINE POLACRILEX 4 MG GUM BC PRN ×3 (10:13→21:47)
[2019-11-18] MEDS: IBUPROFEN 400 MG TABLET (FP) PO PRN (20:26)
[2019-11-18] MEDS: traZODone HCL 100 MG TABLET (FP) PO SCH (21:46)
[2019-11-18] MEDS: MELATONIN 5 MG TABLETS PO PRN (21:47)
[2019-11-18] MEDS: THIAMINE HCL 100 MG TABLET (FP) PO SCH (21:47)
[2019-11-19] MEDS: PRENATAL VITAMINS W/ FOLIC ACID TABLET (FP) PO SCH (09:59)
[2019-11-19] MEDS: GABAPENTIN 300 MG CAPSULE PO SCH ×2 (09:59→20:59)
[2019-11-19] MEDS: PARoxetine HCL 20 MG TABLET PO SCH (09:59)
[2019-11-19] MEDS: NICOTINE 21 MG/24 HOURS TOPICAL PATCH TD SCH (09:59)
[2019-11-19] MEDS: HALOPERIDOL 1 MG TABLET PO SCH ×2 (10:01→20:59)
[2019-11-19] MEDS: BUPRENORPHINE/NALOXONE 4 MG/1 MG FILM PACKET SL SCH (10:02)
[2019-11-19] MEDS: NICOTINE POLACRILEX 4 MG GUM BC PRN ×3 (10:03→21:01)
[2019-11-19] MEDS: traZODone HCL 100 MG TABLET (FP) PO SCH (20:59)
[2019-11-19] MEDS: MELATONIN 5 MG TABLETS PO PRN (21:00)
[2019-11-19] MEDS: THIAMINE HCL 100 MG TABLET (FP) PO SCH (21:00)
[2019-11-19] MEDS: IBUPROFEN 400 MG TABLET (FP) PO PRN (21:01)
[2019-11-20] MEDS: PARoxetine HCL 20 MG TABLET PO SCH (09:56)
[2019-11-20] MEDS: NICOTINE 21 MG/24 HOURS TOPICAL PATCH TD SCH (09:56)
[2019-11-20] MEDS: GABAPENTIN 300 MG CAPSULE PO SCH ×2 (09:56→21:47)
[2019-11-20] MEDS: BUPRENORPHINE/NALOXONE 4 MG/1 MG FILM PACKET SL SCH (09:56)
[2019-11-20] MEDS: HALOPERIDOL 1 MG TABLET PO SCH ×2 (09:56→21:47)
[2019-11-20] MEDS: PRENATAL VITAMINS W/ FOLIC ACID TABLET (FP) PO SCH (09:56)
[2019-11-20] MEDS: NICOTINE POLACRILEX 4 MG GUM BC PRN ×3 (09:58→22:28)
[2019-11-20] MEDS: THIAMINE HCL 100 MG TABLET (FP) PO SCH (21:47)
[2019-11-20] MEDS: traZODone HCL 100 MG TABLET (FP) PO SCH (21:47)
[2019-11-21] MEDS: HALOPERIDOL 1 MG TABLET PO SCH ×2 (10:04→21:16)
[2019-11-21] MEDS: PRENATAL VITAMINS W/ FOLIC ACID TABLET (FP) PO SCH (10:04)
[2019-11-21] MEDS: GABAPENTIN 300 MG CAPSULE PO SCH ×2 (10:04→21:16)
[2019-11-21] MEDS: PARoxetine HCL 20 MG TABLET PO SCH (10:04)
[2019-11-21] MEDS: NICOTINE POLACRILEX 4 MG GUM BC PRN ×3 (10:05→21:17)
[2019-11-21] MEDS: NICOTINE 21 MG/24 HOURS TOPICAL PATCH TD SCH (10:05)
[2019-11-21] MEDS: BUPRENORPHINE/NALOXONE 4 MG/1 MG FILM PACKET SL SCH (10:05)
[2019-11-21] MEDS: THIAMINE HCL 100 MG TABLET (FP) PO SCH (21:16)
[2019-11-21] MEDS: MELATONIN 5 MG TABLETS PO PRN (21:16)
[2019-11-21] MEDS: traZODone HCL 100 MG TABLET (FP) PO SCH (21:16)
[2019-11-22] MEDS: PARoxetine HCL 20 MG TABLET PO SCH (09:53)
[2019-11-22] MEDS: HALOPERIDOL 1 MG TABLET PO SCH ×2 (09:53→21:06)
[2019-11-22] MEDS: PRENATAL VITAMINS W/ FOLIC ACID TABLET (FP) PO SCH (09:53)
[2019-11-22] MEDS: GABAPENTIN 300 MG CAPSULE PO SCH ×2 (09:53→21:06)
[2019-11-22] MEDS: NICOTINE 21 MG/24 HOURS TOPICAL PATCH TD SCH (09:53)
[2019-11-22] MEDS: BUPRENORPHINE/NALOXONE 4 MG/1 MG FILM PACKET SL SCH (09:54)
[2019-11-22] MEDS: NICOTINE POLACRILEX 4 MG GUM BC PRN ×3 (09:58→21:06)
[2019-11-22] MEDS: traZODone HCL 100 MG TABLET (FP) PO SCH (21:06)
[2019-11-22] MEDS: MELATONIN 5 MG TABLETS PO PRN (21:06)
[2019-11-22] MEDS: THIAMINE HCL 100 MG TABLET (FP) PO SCH (21:06)
[2019-11-23] MEDS: PRENATAL VITAMINS W/ FOLIC ACID TABLET (FP) PO SCH (09:38)
[2019-11-23] MEDS: GABAPENTIN 300 MG CAPSULE PO SCH ×2 (09:38→21:34)
[2019-11-23] MEDS: PARoxetine HCL 20 MG TABLET PO SCH (09:38)
[2019-11-23] MEDS: HALOPERIDOL 1 MG TABLET PO SCH ×2 (09:38→21:35)
[2019-11-23] MEDS: NICOTINE 21 MG/24 HOURS TOPICAL PATCH TD SCH (09:38)
[2019-11-23] MEDS: BUPRENORPHINE/NALOXONE 4 MG/1 MG FILM PACKET SL SCH (09:40)
[2019-11-23] MEDS: NICOTINE POLACRILEX 4 MG GUM BC PRN ×2 (16:03→21:35)
[2019-11-23] MEDS: IBUPROFEN 400 MG TABLET (FP) PO PRN (19:51)
[2019-11-23] MEDS: MELATONIN 5 MG TABLETS PO PRN (21:34)
[2019-11-23] MEDS: traZODone HCL 100 MG TABLET (FP) PO SCH (21:34)
[2019-11-23] MEDS: THIAMINE HCL 100 MG TABLET (FP) PO SCH (21:34)
[2019-11-24] MEDS: PRENATAL VITAMINS W/ FOLIC ACID TABLET (FP) PO SCH (10:26)
[2019-11-24] MEDS: NICOTINE 21 MG/24 HOURS TOPICAL PATCH TD SCH (10:26)
[2019-11-24] MEDS: HALOPERIDOL 1 MG TABLET PO SCH ×2 (10:26→21:11)
[2019-11-24] MEDS: PARoxetine HCL 20 MG TABLET PO SCH (10:26)
[2019-11-24] MEDS: GABAPENTIN 300 MG CAPSULE PO SCH ×2 (10:26→21:10)
[2019-11-24] MEDS: BUPRENORPHINE/NALOXONE 4 MG/1 MG FILM PACKET SL SCH (10:30)
[2019-11-24] MEDS: NICOTINE POLACRILEX 4 MG GUM BC PRN ×3 (10:30→17:47)
[2019-11-24] MEDS: MAGNESIUM HYDROX 2400MG/30ML ORAL SUSPENSION 30 ML CUP PO PRN (14:15)
[2019-11-24] MEDS: MELATONIN 5 MG TABLETS PO PRN (21:10)
[2019-11-24] MEDS: THIAMINE HCL 100 MG TABLET (FP) PO SCH (21:10)
[2019-11-24] MEDS: traZODone HCL 100 MG TABLET (FP) PO SCH (21:11)
[2019-11-25] MEDS: GABAPENTIN 300 MG CAPSULE PO SCH ×2 (10:55→21:34)
[2019-11-25] MEDS: PRENATAL VITAMINS W/ FOLIC ACID TABLET (FP) PO SCH (10:55)
[2019-11-25] MEDS: PARoxetine HCL 20 MG TABLET PO SCH (10:55)
[2019-11-25] MEDS: NICOTINE 21 MG/24 HOURS TOPICAL PATCH TD SCH (10:56)
[2019-11-25] MEDS: HALOPERIDOL 1 MG TABLET PO SCH ×2 (10:56→21:34)
[2019-11-25] MEDS: BUPRENORPHINE/NALOXONE 4 MG/1 MG FILM PACKET SL SCH (10:58)
[2019-11-25] MEDS: NICOTINE POLACRILEX 4 MG GUM BC PRN ×3 (12:05→21:35)
[2019-11-25] MEDS: MAGNESIUM HYDROX 2400MG/30ML ORAL SUSPENSION 30 ML CUP PO PRN (13:02)
[2019-11-25] MEDS ORDERED: SODIUM CHLORIDE NASAL SPRAY 44 ML BOTTLE NS PRN (15:41)
--- NOTE | 2019-11-25 15:48 | PN ---
[facility] Progress Note Note: c/o nasal congestion and with intermittent runny nose. Requesting nasal spray. Vital Signs - 24 hr 11/25/19 11/25/19 11/25/19 00:30 03:30 07:15 Temperature 97.5 F L Pulse Rate 72 Respiratory 18 18 18 Rate Blood Pressure 107/73 Alert o x 3 nad oob ambulating with steady gait Heent;normocephalic,mayo,nasal drainage,slightly red. A/P URI Actifed as directed [place] spray nasal spray as directed.
[2019-11-25] MEDS: traZODone HCL 100 MG TABLET (FP) PO SCH (21:34)
[2019-11-25] MEDS: THIAMINE HCL 100 MG TABLET (FP) PO SCH (21:34)
[2019-11-25] MEDS: MELATONIN 5 MG TABLETS PO PRN (21:34)
[2019-11-25] MEDS: P-EPHED 60MG/TRIPROLIDI 2.5MG TABLET PO PRN (22:55)
[2019-11-26] MEDS: BUPRENORPHINE/NALOXONE 4 MG/1 MG FILM PACKET SL SCH (10:21)
[2019-11-26] MEDS: HALOPERIDOL 1 MG TABLET PO SCH ×2 (10:21→21:40)
[2019-11-26] MEDS: GABAPENTIN 300 MG CAPSULE PO SCH ×2 (10:21→21:40)
[2019-11-26] MEDS: PRENATAL VITAMINS W/ FOLIC ACID TABLET (FP) PO SCH (10:21)
[2019-11-26] MEDS: NICOTINE 21 MG/24 HOURS TOPICAL PATCH TD SCH (10:21)
[2019-11-26] MEDS: PARoxetine HCL 20 MG TABLET PO SCH (10:21)
[2019-11-26] MEDS: NICOTINE POLACRILEX 4 MG GUM BC PRN (14:54)
[2019-11-26] MEDS: IBUPROFEN 400 MG TABLET (FP) PO PRN (21:39)
[2019-11-26] MEDS: traZODone HCL 100 MG TABLET (FP) PO SCH (21:40)
[2019-11-26] MEDS: THIAMINE HCL 100 MG TABLET (FP) PO SCH (21:40)
[2019-11-27] MEDS: BUPRENORPHINE/NALOXONE 4 MG/1 MG FILM PACKET SL SCH (09:38)
[2019-11-27] MEDS: NICOTINE 21 MG/24 HOURS TOPICAL PATCH TD SCH (09:38)
[2019-11-27] MEDS: PRENATAL VITAMINS W/ FOLIC ACID TABLET (FP) PO SCH (09:38)
[2019-11-27] MEDS: PARoxetine HCL 20 MG TABLET PO SCH (09:39)
[2019-11-27] MEDS: HALOPERIDOL 1 MG TABLET PO SCH ×2 (09:39→21:06)
[2019-11-27] MEDS: GABAPENTIN 300 MG CAPSULE PO SCH ×2 (09:39→21:06)
[2019-11-27] MEDS: DOCUSATE SODIUM 100 MG CAPSULE (FP) PO PRN ×2 (11:44→21:07)
[2019-11-27] MEDS: NICOTINE POLACRILEX 4 MG GUM BC PRN ×3 (11:45→21:07)
[2019-11-27] MEDS: traZODone HCL 100 MG TABLET (FP) PO SCH (21:06)
[2019-11-27] MEDS: MELATONIN 5 MG TABLETS PO PRN (21:06)
[2019-11-27] MEDS: THIAMINE HCL 100 MG TABLET (FP) PO SCH (21:06)
[2019-11-28] MEDS: PRENATAL VITAMINS W/ FOLIC ACID TABLET (FP) PO SCH (09:34)
[2019-11-28] MEDS: HALOPERIDOL 1 MG TABLET PO SCH ×2 (09:34→21:35)
[2019-11-28] MEDS: BUPRENORPHINE/NALOXONE 4 MG/1 MG FILM PACKET SL SCH (09:34)
[2019-11-28] MEDS: GABAPENTIN 300 MG CAPSULE PO SCH ×2 (09:34→21:36)
[2019-11-28] MEDS: PARoxetine HCL 20 MG TABLET PO SCH (09:34)
[2019-11-28] MEDS: NICOTINE 21 MG/24 HOURS TOPICAL PATCH TD SCH (09:34)
[2019-11-28] MEDS: DOCUSATE SODIUM 100 MG CAPSULE (FP) PO PRN ×2 (09:35→21:36)
[2019-11-28] MEDS: NICOTINE POLACRILEX 4 MG GUM BC PRN ×3 (13:09→21:37)
[2019-11-28] MEDS: traZODone HCL 100 MG TABLET (FP) PO SCH (21:35)
[2019-11-28] MEDS: THIAMINE HCL 100 MG TABLET (FP) PO SCH (21:35)
[2019-11-28] MEDS: MELATONIN 5 MG TABLETS PO PRN (21:35)
[2019-11-29] MEDS: NICOTINE POLACRILEX 4 MG GUM BC PRN ×4 (10:17→21:07)
[2019-11-29] MEDS: PRENATAL VITAMINS W/ FOLIC ACID TABLET (FP) PO SCH (10:17)
[2019-11-29] MEDS: HALOPERIDOL 1 MG TABLET PO SCH ×2 (10:17→21:06)
[2019-11-29] MEDS: BUPRENORPHINE/NALOXONE 4 MG/1 MG FILM PACKET SL SCH (10:17)
[2019-11-29] MEDS: NICOTINE 21 MG/24 HOURS TOPICAL PATCH TD SCH (10:17)
[2019-11-29] MEDS: PARoxetine HCL 20 MG TABLET PO SCH (10:17)
[2019-11-29] MEDS: DOCUSATE SODIUM 100 MG CAPSULE (FP) PO PRN ×2 (10:17→21:07)
[2019-11-29] MEDS: GABAPENTIN 300 MG CAPSULE PO SCH ×2 (10:17→21:06)
[2019-11-29] MEDS: THIAMINE HCL 100 MG TABLET (FP) PO SCH (21:06)
[2019-11-29] MEDS: traZODone HCL 100 MG TABLET (FP) PO SCH (21:06)
[2019-11-29] MEDS: MELATONIN 5 MG TABLETS PO PRN (21:07)
--- NOTE | 2019-11-30 09:42 | PN ---
[facility] Progress Note Note: Pt states that he would like to split the 4mg dose to 2mg twice a day: ordered pt states he would like to have MAT f/u here- will talk to counselor to set up f /u appt
[2019-11-30] MEDS: HALOPERIDOL 1 MG TABLET PO SCH ×2 (10:29→21:31)
[2019-11-30] MEDS: PARoxetine HCL 20 MG TABLET PO SCH (10:29)
[2019-11-30] MEDS: NICOTINE 21 MG/24 HOURS TOPICAL PATCH TD SCH (10:29)
[2019-11-30] MEDS: PRENATAL VITAMINS W/ FOLIC ACID TABLET (FP) PO SCH (10:29)
[2019-11-30] MEDS: GABAPENTIN 300 MG CAPSULE PO SCH ×2 (10:29→21:31)
[2019-11-30] MEDS: BUPRENORPHINE/NALOXONE 2 MG/0.5 MG FILM PACKET SL SCH ×2 (10:31→21:33)
[2019-11-30] MEDS: DOCUSATE SODIUM 100 MG CAPSULE (FP) PO PRN ×2 (10:31→21:31)
[2019-11-30] MEDS: NICOTINE POLACRILEX 4 MG GUM BC PRN ×2 (13:08→16:38)
[2019-11-30] MEDS: THIAMINE HCL 100 MG TABLET (FP) PO SCH (21:31)
[2019-11-30] MEDS: traZODone HCL 100 MG TABLET (FP) PO SCH (21:31)
[2019-11-30] MEDS: MELATONIN 5 MG TABLETS PO PRN (21:32)
[2019-11-30] MEDS: ACETAMINOPHEN 325 MG TABLET (FP) PO PRN (22:57)
[2019-12-01] MEDS: PRENATAL VITAMINS W/ FOLIC ACID TABLET (FP) PO SCH (10:25)
[2019-12-01] MEDS: HALOPERIDOL 1 MG TABLET PO SCH ×2 (10:25→21:00)
[2019-12-01] MEDS: PARoxetine HCL 20 MG TABLET PO SCH (10:25)
[2019-12-01] MEDS: GABAPENTIN 300 MG CAPSULE PO SCH ×2 (10:25→21:00)
[2019-12-01] MEDS: NICOTINE 21 MG/24 HOURS TOPICAL PATCH TD SCH (10:26)
[2019-12-01] MEDS: DOCUSATE SODIUM 100 MG CAPSULE (FP) PO PRN ×2 (10:27→21:00)
[2019-12-01] MEDS: BUPRENORPHINE/NALOXONE 2 MG/0.5 MG FILM PACKET SL SCH ×2 (10:27→21:00)
[2019-12-01] MEDS: IBUPROFEN 400 MG TABLET (FP) PO PRN (13:02)
[2019-12-01] MEDS: NICOTINE POLACRILEX 4 MG GUM BC PRN ×2 (16:39→18:39)
[2019-12-01] MEDS: traZODone HCL 100 MG TABLET (FP) PO SCH (21:00)
[2019-12-01] MEDS: THIAMINE HCL 100 MG TABLET (FP) PO SCH (21:00)
[2019-12-01] MEDS: MELATONIN 5 MG TABLETS PO PRN (21:00)
[2019-12-02] MEDS: DOCUSATE SODIUM 100 MG CAPSULE (FP) PO PRN (09:51)
[2019-12-02] MEDS: PRENATAL VITAMINS W/ FOLIC ACID TABLET (FP) PO SCH (09:51)
[2019-12-02] MEDS: PARoxetine HCL 20 MG TABLET PO SCH (09:51)
[2019-12-02] MEDS: GABAPENTIN 300 MG CAPSULE PO SCH ×2 (09:51→21:28)
[2019-12-02] MEDS: NICOTINE POLACRILEX 4 MG GUM BC PRN ×2 (09:52→17:25)
[2019-12-02] MEDS: NICOTINE 21 MG/24 HOURS TOPICAL PATCH TD SCH (09:52)
[2019-12-02] MEDS: HALOPERIDOL 1 MG TABLET PO SCH ×2 (09:52→21:27)
[2019-12-02] MEDS: BUPRENORPHINE/NALOXONE 2 MG/0.5 MG FILM PACKET SL SCH ×2 (09:52→21:29)
[2019-12-02] MEDS: ACETAMINOPHEN 325 MG TABLET (FP) PO PRN (17:25)
[2019-12-02] MEDS: MAGNESIUM HYDROX 2400MG/30ML ORAL SUSPENSION 30 ML CUP PO PRN (17:25)
[2019-12-02] MEDS: traZODone HCL 100 MG TABLET (FP) PO SCH (21:27)
[2019-12-02] MEDS: THIAMINE HCL 100 MG TABLET (FP) PO SCH (21:27)
[2019-12-02] MEDS: MELATONIN 5 MG TABLETS PO PRN (21:28)
[2019-12-03] MEDS: PRENATAL VITAMINS W/ FOLIC ACID TABLET (FP) PO SCH (10:28)
[2019-12-03] MEDS: HALOPERIDOL 1 MG TABLET PO SCH ×2 (10:28→21:00)
[2019-12-03] MEDS: NICOTINE 21 MG/24 HOURS TOPICAL PATCH TD SCH (10:28)
[2019-12-03] MEDS: GABAPENTIN 300 MG CAPSULE PO SCH ×2 (10:28→21:00)
[2019-12-03] MEDS: DOCUSATE SODIUM 100 MG CAPSULE (FP) PO PRN ×2 (10:28→21:01)
[2019-12-03] MEDS: PARoxetine HCL 20 MG TABLET PO SCH (10:28)
[2019-12-03] MEDS: BUPRENORPHINE/NALOXONE 2 MG/0.5 MG FILM PACKET SL SCH ×2 (10:29→21:02)
[2019-12-03] MEDS: MAGNESIUM HYDROX 2400MG/30ML ORAL SUSPENSION 30 ML CUP PO PRN (10:30)
[2019-12-03] MEDS: NICOTINE POLACRILEX 4 MG GUM BC PRN ×3 (10:43→19:53)
[2019-12-03] MEDS: IBUPROFEN 400 MG TABLET (FP) PO PRN (17:50)
[2019-12-03] MEDS: THIAMINE HCL 100 MG TABLET (FP) PO SCH (21:00)
[2019-12-03] MEDS: traZODone HCL 100 MG TABLET (FP) PO SCH (21:00)
[2019-12-03] MEDS: MELATONIN 5 MG TABLETS PO PRN (21:00)
[2019-12-04] MEDS: PRENATAL VITAMINS W/ FOLIC ACID TABLET (FP) PO SCH (10:00)
[2019-12-04] MEDS: NICOTINE 21 MG/24 HOURS TOPICAL PATCH TD SCH (10:00)
[2019-12-04] MEDS: DOCUSATE SODIUM 100 MG CAPSULE (FP) PO PRN ×2 (10:00→21:25)
[2019-12-04] MEDS: GABAPENTIN 300 MG CAPSULE PO SCH ×2 (10:00→21:20)
[2019-12-04] MEDS: HALOPERIDOL 1 MG TABLET PO SCH ×2 (10:01→21:21)
[2019-12-04] MEDS: PARoxetine HCL 20 MG TABLET PO SCH (10:01)
[2019-12-04] MEDS: BUPRENORPHINE/NALOXONE 2 MG/0.5 MG FILM PACKET SL SCH ×2 (10:02→21:46)
[2019-12-04] MEDS: NICOTINE POLACRILEX 4 MG GUM BC PRN ×2 (10:04→21:25)
[2019-12-04] MEDS: traZODone HCL 100 MG TABLET (FP) PO SCH (21:20)
[2019-12-04] MEDS: THIAMINE HCL 100 MG TABLET (FP) PO SCH (21:20)
[2019-12-05] MEDS: HALOPERIDOL 1 MG TABLET PO SCH ×2 (10:22→21:29)
[2019-12-05] MEDS: PRENATAL VITAMINS W/ FOLIC ACID TABLET (FP) PO SCH (10:22)
[2019-12-05] MEDS: DOCUSATE SODIUM 100 MG CAPSULE (FP) PO PRN ×2 (10:22→21:30)
[2019-12-05] MEDS: NICOTINE 21 MG/24 HOURS TOPICAL PATCH TD SCH (10:22)
[2019-12-05] MEDS: GABAPENTIN 300 MG CAPSULE PO SCH ×2 (10:22→21:28)
[2019-12-05] MEDS: PARoxetine HCL 20 MG TABLET PO SCH (10:22)
[2019-12-05] MEDS: BUPRENORPHINE/NALOXONE 2 MG/0.5 MG FILM PACKET SL SCH ×2 (10:25→21:29)
[2019-12-05] MEDS: NICOTINE POLACRILEX 4 MG GUM BC PRN ×3 (10:26→21:31)
[2019-12-05] MEDS: traZODone HCL 100 MG TABLET (FP) PO SCH (21:28)
[2019-12-05] MEDS: THIAMINE HCL 100 MG TABLET (FP) PO SCH (21:28)
[2019-12-05] MEDS: P-EPHED 60MG/TRIPROLIDI 2.5MG TABLET PO PRN (23:01)
[2019-12-06] MEDS: PARoxetine HCL 20 MG TABLET PO SCH (10:07)
[2019-12-06] MEDS: GABAPENTIN 300 MG CAPSULE PO SCH ×2 (10:07→21:36)
[2019-12-06] MEDS: DOCUSATE SODIUM 100 MG CAPSULE (FP) PO PRN ×2 (10:07→21:37)
[2019-12-06] MEDS: PRENATAL VITAMINS W/ FOLIC ACID TABLET (FP) PO SCH (10:07)
[2019-12-06] MEDS: BUPRENORPHINE/NALOXONE 2 MG/0.5 MG FILM PACKET SL SCH ×2 (10:07→21:37)
[2019-12-06] MEDS: NICOTINE 21 MG/24 HOURS TOPICAL PATCH TD SCH (10:07)
[2019-12-06] MEDS: HALOPERIDOL 1 MG TABLET PO SCH ×2 (10:07→21:36)
[2019-12-06] MEDS: NICOTINE POLACRILEX 4 MG GUM BC PRN ×2 (10:10→16:41)
[2019-12-06] MEDS: P-EPHED 60MG/TRIPROLIDI 2.5MG TABLET PO PRN (12:33)
[2019-12-06] MEDS: traZODone HCL 100 MG TABLET (FP) PO SCH (21:36)
[2019-12-06] MEDS: THIAMINE HCL 100 MG TABLET (FP) PO SCH (21:36)
[2019-12-06] MEDS: MELATONIN 5 MG TABLETS PO PRN (21:38)
[2019-12-07] MEDS: PRENATAL VITAMINS W/ FOLIC ACID TABLET (FP) PO SCH (10:31)
[2019-12-07] MEDS: DOCUSATE SODIUM 100 MG CAPSULE (FP) PO PRN ×2 (10:31→21:00)
[2019-12-07] MEDS: GABAPENTIN 300 MG CAPSULE PO SCH ×2 (10:31→21:00)
[2019-12-07] MEDS: HALOPERIDOL 1 MG TABLET PO SCH ×2 (10:31→21:00)
[2019-12-07] MEDS: NICOTINE 21 MG/24 HOURS TOPICAL PATCH TD SCH (10:31)
[2019-12-07] MEDS: BUPRENORPHINE/NALOXONE 2 MG/0.5 MG FILM PACKET SL SCH ×2 (10:31→21:01)
[2019-12-07] MEDS: PARoxetine HCL 20 MG TABLET PO SCH (10:31)
[2019-12-07] MEDS: NICOTINE POLACRILEX 4 MG GUM BC PRN ×2 (12:26→17:22)
[2019-12-07] MEDS: ACETAMINOPHEN 325 MG TABLET (FP) PO PRN (17:22)
[2019-12-07] MEDS: MELATONIN 5 MG TABLETS PO PRN (21:00)
[2019-12-07] MEDS: THIAMINE HCL 100 MG TABLET (FP) PO SCH (21:00)
[2019-12-07] MEDS: traZODone HCL 100 MG TABLET (FP) PO SCH (21:00)
[2019-12-08] MEDS: NICOTINE 21 MG/24 HOURS TOPICAL PATCH TD SCH (10:14)
[2019-12-08] MEDS: PRENATAL VITAMINS W/ FOLIC ACID TABLET (FP) PO SCH (10:14)
[2019-12-08] MEDS: HALOPERIDOL 1 MG TABLET PO SCH ×2 (10:15→21:27)
[2019-12-08] MEDS: PARoxetine HCL 20 MG TABLET PO SCH (10:15)
[2019-12-08] MEDS: GABAPENTIN 300 MG CAPSULE PO SCH ×2 (10:15→21:27)
[2019-12-08] MEDS: DOCUSATE SODIUM 100 MG CAPSULE (FP) PO PRN ×2 (10:15→21:28)
[2019-12-08] MEDS: BUPRENORPHINE/NALOXONE 2 MG/0.5 MG FILM PACKET SL SCH ×2 (10:16→21:29)
[2019-12-08] MEDS: NICOTINE POLACRILEX 4 MG GUM BC PRN ×3 (10:18→21:29)
--- NOTE | 2019-12-08 12:23 | PN ---
Psychiatric Progress Note Vital Signs: Vital Signs Period Temp Pulse Resp BP Sys/Sun Pulse Ox Last 24 Hr 97.6 F 76 18-20 94/60 Date of Session: 12/08/19 Chief Complaint:: " I want to go to a senior living." HPI: Patient admitted to [facility] for opiate, cannabis, and cocaine dependence. Consultation ordered for re evaluation of placement. ROS: Patient is alert +oriented X3. Current Medications: Active Medications Generic Name Dose Route Start Last Admin Trade Name Freq PRN Reason Stop Dose Admin Acetaminophen 650 mg 11/14/19 12:16 12/07/19 17:22 Tylenol - PO 650 mg Q4H PRN Administration FEVER Al Hydroxide/Mg Hydroxide 30 ml 11/14/19 12:16 11/23/19 19:52 Mylanta Oral Suspension - PO 30 ml Q6H PRN Administration DYSPEPSIA Albuterol Sulfate 2 puff 11/14/19 12:19 Ventolin Hfa Inhaler - IH Q4H PRN SHORT OF BREATH/WHEEZING Benzocaine 1 applic 11/17/19 09:48 Anbesol - MM Q6H PRN ORAL PAIN/MOUTH SORES Buprenorphine/Naloxone 1 each 12/07/19 10:00 12/08/19 10:16 Suboxone 2 Mg/0.5 Mg Film Packet SL 12/13/19 09:59 1 each BID JUNIOR Administration Docusate Sodium 100 mg 11/27/19 09:46 12/08/19 10:15 Colace - PO 100 mg BID PRN Administration CONSTIPATION Eucalyptus/Menthol/Phenol/Sorbitol 1 each 11/14/19 12:16 Cepastat Lozenge - MM Q4H PRN SORE THROAT Gabapentin 300 mg 11/15/19 12:30 12/08/19 10:15 Neurontin - PO 300 mg BID JUNIOR Administration Guaifenesin 10 ml 11/14/19 12:16 Robitussin - PO Q6H PRN COUGH Haloperidol 1 mg 11/15/19 12:25 12/08/19 10:15 Haldol - PO 1 mg BID JUNIOR Administration Ibuprofen 400 mg 11/14/19 12:16 12/03/19 17:50 Motrin - PO 400 mg Q6H PRN Administration Pain level 4-6 Loperamide HCl 4 mg 11/14/19 12:16 Imodium - PO Q6H PRN DIARRHEA Magnesium Citrate 300 ml 11/14/19 12:16 11/26/19 10:24 Citroma - PO 300 ml Q48H PRN Administration CONSTIPATION Magnesium Hydroxide 30 ml 11/14/19 12:16 12/03/19 10:30 Milk Of Magnesia - PO 30 ml DAILY PRN Administration CONSTIPATION Melatonin 5 mg 11/14/19 22:00 12/07/19 21:00 Melatonin PO 5 mg HS PRN Administration INSOMNIA Naloxone HCl 4 mg 11/17/19 09:42 Narcan NS ASDIR PRN WITHDRAWAL(CONT SUBST) Nicotine 21 mg 11/15/19 10:00 12/08/19 10:14 Nicoderm Patch - TD 21 mg DAILY JUNIOR Administration Nicotine Polacrilex 4 mg 11/14/19 12:16 12/08/19 10:18 Nicorette Gum - BC 4 mg Q2H PRN Administration NICOTINE REPLACEMENT RX Paroxetine HCl 40 mg 11/15/19 10:00 12/08/19 10:15 Paxil - PO 40 mg DAILY JUNIOR Administration Multivit/Folic Acid/Iron 1 tab 11/15/19 10:00 12/08/19 10:14 Vitamins (Sjr) - PO 1 tab DAILY JUNIOR Administration Pseudoephedrine/Triprolidine 1 combo 11/14/19 12:16 12/06/19 12:33 Actifed - PO 1 combo TID PRN Administration NASAL CONGESTION Sodium Chloride 2 spray 11/25/19 15:41 12/07/19 10:31 [place] Nasal [place] - NS 2 spray TID PRN Administration NASAL CONGESTION Thiamine HCl 100 mg 11/14/19 22:00 12/07/19 21:00 Vitamin B1 - PO 100 mg HS JUNIOR Administration Trazodone HCl 100 mg 11/15/19 22:00 12/07/19 21:00 Desyrel - PO 100 mg HS JUNIOR Administration Medication(s) Change(s): No. Current Side Effect: No Lab tests ordered: No Lab tests reviewed: Yes Provider note:: Patient is a 38 year old male with a history of cocaine and opiate dependence. History of multiple psychiatric hosptalizations secondary to depression, anxiety, and psychotic symptoms. Patient has been in rehab since and has had an uneventful stay since admission. Patient has been attending and participating in groups, compliant with his medications, and following rules of the milieu. No psychotic, manic, or depressive symptoms have been noted. Patient denies auditory/visual hallucinations, suicidal/homicidal ideation. Total face to face time:: 25 Mental Status Exam - Mental Status Exam Alert and Oriented to: Time, Place, Person Cognitive Function: Good Patient Appearance: Well Groomed Mood: Anxious Affect: Appropriate Patient Behavior: Appropriate, Cooperative Speech Pattern: Appropriate Voice Loudness: Normal Thought Process: Goal Oriented Thought Disorder: Not Present Hallucinations: Denies Suicidal Ideation: Denies Homicidal Ideation: Denies Insight/Judgement: Poor Sleep: Fair Appetite: Fair Muscle strength/Tone: Normal Gait/Station: Normal Psychiatric Treatment Plan - Problem List (1) Cannabis dependence Current Visit: Yes (2) Opioid dependence Current Visit: Yes (3) Substance-induced anxiety disorder Current Visit: Yes (4) Substance-induced sleep disorder Current Visit: No (5) Schizophrenia Current Visit: No (6) Nicotine dependence Current Visit: Yes Qualifiers: Nicotine product type: cigarettes Substance use status: in withdrawal Qualified Code(s): F17.213 - Nicotine dependence, cigarettes, with withdrawal
[2019-12-08] MEDS: ACETAMINOPHEN 325 MG TABLET (FP) PO PRN (14:07)
[2019-12-08] MEDS: THIAMINE HCL 100 MG TABLET (FP) PO SCH (21:27)
[2019-12-08] MEDS: MELATONIN 5 MG TABLETS PO PRN (21:27)
[2019-12-08] MEDS: traZODone HCL 100 MG TABLET (FP) PO SCH (21:27)
[2019-12-09] MEDS: NICOTINE POLACRILEX 4 MG GUM BC PRN ×4 (08:34→21:20)
[2019-12-09] MEDS: HALOPERIDOL 1 MG TABLET PO SCH ×2 (09:57→21:18)
[2019-12-09] MEDS: PRENATAL VITAMINS W/ FOLIC ACID TABLET (FP) PO SCH (09:57)
[2019-12-09] MEDS: PARoxetine HCL 20 MG TABLET PO SCH (09:57)
[2019-12-09] MEDS: GABAPENTIN 300 MG CAPSULE PO SCH ×2 (09:57→21:18)
[2019-12-09] MEDS: NICOTINE 21 MG/24 HOURS TOPICAL PATCH TD SCH (09:57)
[2019-12-09] MEDS: BUPRENORPHINE/NALOXONE 2 MG/0.5 MG FILM PACKET SL SCH ×2 (09:59→21:18)
[2019-12-09] MEDS: DOCUSATE SODIUM 100 MG CAPSULE (FP) PO PRN (10:00)
[2019-12-09] MEDS: THIAMINE HCL 100 MG TABLET (FP) PO SCH (21:18)
[2019-12-09] MEDS: MELATONIN 5 MG TABLETS PO PRN (21:18)
[2019-12-09] MEDS: traZODone HCL 100 MG TABLET (FP) PO SCH (21:18)
[2019-12-10] MEDS: DOCUSATE SODIUM 100 MG CAPSULE (FP) PO PRN (10:39)
[2019-12-10] MEDS: PARoxetine HCL 20 MG TABLET PO SCH (10:39)
[2019-12-10] MEDS: BUPRENORPHINE/NALOXONE 2 MG/0.5 MG FILM PACKET SL SCH ×2 (10:39→21:05)
[2019-12-10] MEDS: HALOPERIDOL 1 MG TABLET PO SCH ×2 (10:39→21:04)
[2019-12-10] MEDS: NICOTINE 21 MG/24 HOURS TOPICAL PATCH TD SCH (10:39)
[2019-12-10] MEDS: PRENATAL VITAMINS W/ FOLIC ACID TABLET (FP) PO SCH (10:39)
[2019-12-10] MEDS: GABAPENTIN 300 MG CAPSULE PO SCH ×2 (10:39→21:04)
[2019-12-10] MEDS: NICOTINE POLACRILEX 4 MG GUM BC PRN ×4 (10:41→21:05)
[2019-12-10] MEDS: P-EPHED 60MG/TRIPROLIDI 2.5MG TABLET PO PRN (14:09)
[2019-12-10] MEDS: MELATONIN 5 MG TABLETS PO PRN (21:04)
[2019-12-10] MEDS: traZODone HCL 100 MG TABLET (FP) PO SCH (21:04)
[2019-12-10] MEDS: THIAMINE HCL 100 MG TABLET (FP) PO SCH (21:04)
[2019-12-11] MEDS: GABAPENTIN 300 MG CAPSULE PO SCH ×2 (09:42→21:36)
[2019-12-11] MEDS: NICOTINE 21 MG/24 HOURS TOPICAL PATCH TD SCH (09:42)
[2019-12-11] MEDS: HALOPERIDOL 1 MG TABLET PO SCH ×2 (09:42→21:35)
[2019-12-11] MEDS: PARoxetine HCL 20 MG TABLET PO SCH (09:42)
[2019-12-11] MEDS: BUPRENORPHINE/NALOXONE 2 MG/0.5 MG FILM PACKET SL SCH ×2 (09:42→21:37)
[2019-12-11] MEDS: DOCUSATE SODIUM 100 MG CAPSULE (FP) PO PRN ×2 (09:43→21:36)
[2019-12-11] MEDS: PRENATAL VITAMINS W/ FOLIC ACID TABLET (FP) PO SCH (09:43)
[2019-12-11] MEDS: NICOTINE POLACRILEX 4 MG GUM BC PRN ×4 (09:44→21:38)
[2019-12-11] MEDS: traZODone HCL 100 MG TABLET (FP) PO SCH (21:35)
[2019-12-11] MEDS: THIAMINE HCL 100 MG TABLET (FP) PO SCH (21:35)
[2019-12-11] MEDS: MELATONIN 5 MG TABLETS PO PRN (21:35)
[2019-12-12] MEDS: HALOPERIDOL 1 MG TABLET PO SCH ×2 (09:54→21:03)
[2019-12-12] MEDS: GABAPENTIN 300 MG CAPSULE PO SCH ×2 (09:55→21:03)
[2019-12-12] MEDS: BUPRENORPHINE/NALOXONE 2 MG/0.5 MG FILM PACKET SL SCH ×2 (09:55→21:05)
[2019-12-12] MEDS: PARoxetine HCL 20 MG TABLET PO SCH (09:55)
[2019-12-12] MEDS: PRENATAL VITAMINS W/ FOLIC ACID TABLET (FP) PO SCH (09:55)
[2019-12-12] MEDS: NICOTINE 21 MG/24 HOURS TOPICAL PATCH TD SCH (09:55)
[2019-12-12] MEDS: DOCUSATE SODIUM 100 MG CAPSULE (FP) PO PRN ×2 (09:56→21:04)
[2019-12-12] MEDS: NICOTINE POLACRILEX 4 MG GUM BC PRN ×4 (09:57→21:05)
[2019-12-12] MEDS: MELATONIN 5 MG TABLETS PO PRN (21:03)
[2019-12-12] MEDS: THIAMINE HCL 100 MG TABLET (FP) PO SCH (21:03)
[2019-12-12] MEDS: traZODone HCL 100 MG TABLET (FP) PO SCH (21:03)
[2019-12-12] MEDS: P-EPHED 60MG/TRIPROLIDI 2.5MG TABLET PO PRN (22:43)
[2019-12-13 07:15] VITALS: BP 105/67; PULSE 84; TEMP 97.5
--- NOTE | 2019-12-13 08:59 | DS ---
[facility] Rehab Discharge Summary - [facility] Rehab Discharge Summary Admission Date: 11/14/19 Discharge Date: 12/13/19 - History Present History: Cannabis dependence, Opioid dependence - Discharge Physical Exam Vital Signs: Vital Signs Temperature 97.5 F L 12/13/19 07:15 Pulse Rate 84 12/13/19 07:15 Respiratory Rate 16 12/13/19 07:15 Blood Pressure 105/67 12/13/19 07:15 O2 Sat by Pulse Oximetry (%) - Treatment Discharge Condition: Discharge condition good Hospital Course: Patient completed rehab today for opiod/thc dependence. During course of treatment patient started on suboxone mat and tolerated treatment. Patient has aftercare arranged for project renewal and will arrange appointment for later this week. Patient to be discharged with one week prescription of Suboxone and was advised to follow up with [facility]TP within that time for continuation of medication management. Patient is medically stable at this time and denies SI/ HI. Patient also medically advised to follow up with PCP as recommended. Laboratory Tests 11/15/19 07:00 HIV 1&2 Antibody Screen Negative HIV P24 Antigen Negative Vital Signs Temperature 97.5 F L 12/13/19 07:15 Pulse Rate 84 12/13/19 07:15 Respiratory Rate 16 12/13/19 07:15 Blood Pressure 105/67 12/13/19 07:15 O2 Sat by Pulse Oximetry (%) - Medication Discharge Medications: Ambulatory Orders Clonazepam [Klonopin] 1 mg PO DAILY 11/09/19 Haloperidol [Haldol -] 2 mg PO HS 11/09/19 Naloxone HCl [Narcan] 4 mg NS ASDIR PRN #1 spray 11/10/19 Gabapentin [Neurontin -] 300 mg PO BID #60 capsule 12/12/19 Haloperidol [Haldol -] 1 mg PO BID #60 tablet 12/12/19 Paroxetine HCl [Paxil] 40 mg PO DAILY #30 tablet 12/12/19 traZODone HCL [Desyrel -] 100 mg PO HS #30 tablet 12/12/19 Buprenorphine/Naloxone [Suboxone 2Mg/0.5MG Sl Film -] 1 combo SL BID #14 packet MDD 4mg 12/13/19 - Medication-Assisted Treatment (MAT) Medication-Assisted Treatment (MAT): Yes Medication Prescribed: Suboxone MAT Follow-up Referral: [facility]. Patient to follow up with [facility] this week but prefers to arrange his own appointment. - Discharge Instructions Diet, activity, other medical instructions: Diet: Reg as tolerated Activity: as tolerated Other medical instructions: Follow up with PCP as recommended - Follow-up Referral Minutes to complete discharge: 30 - AMA Did Patient Leave Against Medical Advice: No
[2019-12-13] MEDS: GABAPENTIN 300 MG CAPSULE PO SCH (09:45)
[2019-12-13] MEDS: HALOPERIDOL 1 MG TABLET PO SCH (09:45)
[2019-12-13] MEDS: DOCUSATE SODIUM 100 MG CAPSULE (FP) PO PRN (09:45)
[2019-12-13] MEDS: PRENATAL VITAMINS W/ FOLIC ACID TABLET (FP) PO SCH (09:45)
[2019-12-13] MEDS: PARoxetine HCL 20 MG TABLET PO SCH (09:45)
[2019-12-13] MEDS: NICOTINE 21 MG/24 HOURS TOPICAL PATCH TD SCH (09:45)
== END 2019-12-13 10:25 | disposition home or self-care (01) | DRG 772 ==
LOC: YASAS 14:55 → Y3W 14:56
PROVIDERS: ADMIT Neuromusculoskeletal Medicine & OMM; ATTEND Neuromusculoskeletal Medicine & OMM
PROC: HZ42ZZZ Group Counseling for Substance Abuse Treatment, Cognitive-Behavioral (ICD-10-PCS; principal; 2019-11-14)
DX: F11.20 Opioid dependence, uncomplicated (principal); F12.20 Cannabis dependence, uncomplicated; F17.213 Nicotine dependence, cigarettes, with withdrawal; F19.280 Other psychoactive substance dependence with psychoactive substance-induced anxiety disorder; F19.282 Other psychoactive substance dependence with psychoactive substance-induced sleep disorder; F20.9 Schizophrenia, unspecified; F99 Mental disorder, not otherwise specified; J06.9 Acute upper respiratory infection, unspecified; J45.20 Mild intermittent asthma, uncomplicated
CPT/HCPCS: 36415; 87389; G0008; Q2036